=== PATIENT | male | born 1985 | race Caucasian/White ===

== ENCOUNTER 2019-11-04 17:04 | Emergency (ER) | payer MEDICARE, MEDICAID ==
[~2019-11-04] VITALS: Ht 190.5 cm; Wt 122.7 kg
[2019-11-04 20:17] LABS: COVID AG,FIA SOURCE NASOPHARYNGEAL
[2019-11-04] MEDS ORDERED: LIDOCAINE 5% TRANSDERMAL PATCH TD ONE (20:30)
[2019-11-04 20:43] VITALS: BP 108/73
== END 2019-11-04 20:58 | disposition home or self-care (01) ==
LOC: EMS 17:06
DX: R05 Cough (principal); Z20.828 Contact with and (suspected) exposure to other viral communicable diseases
CPT/HCPCS: 87426; 71045-TC